=== PATIENT | female | born 1995 | race Caucasian/White ===

== ENCOUNTER 2024-07-12 16:16 | Emergency (ER) | payer OTHER ==
[~2024-07-12] VITALS: Ht 160 cm; Wt 91.0 kg
[2024-07-12 16:20] VITALS: O2SAT 97
[2024-07-12 16:25] VITALS: BP 139/97; PULSE 80; RESP 18; TEMP 36.7; O2SAT 97
[2024-07-12] MEDS: BACITRACIN ZINC OINT UDPKT TOP ONE (18:02)
[2024-07-12] MEDS: LIDOCAINE HCL/PF 1% 10 MG/ML 5ML VIAL INFIL ONE (18:02)
[2024-07-12] MEDS ORDERED: CEPH500C2 PO (19:02)
== END 2024-07-12 19:10 | disposition home or self-care (01) ==
LOC: ER 16:16
DX: S61.011A Laceration without foreign body of right thumb without damage to nail, initial encounter (principal); Z98.890 Other specified postprocedural states; W26.9XXA Contact with unspecified sharp object(s), initial encounter; Y93.89 Activity, other specified; Y92.89 Other specified places as the place of occurrence of the external cause; Y99.8 Other external cause status
CPT/HCPCS: 12001; 99283; J2003; Z7610